=== PATIENT | male | born 1945 | race Caucasian/White ===

== ENCOUNTER 2018-10-10 09:26 | Outpatient (CLI) | payer MEDICARE ==
[~2018-10-10 09:26] MED LIST: B12/1TAB3; CARB1TAB2 PO; CARB1TAB73 PO; CEPH-368 PO; CYAN1TAB29 PO; ENTA200T; HYDR-3240 PO; LORA-445; MELA5TAB19 PO; NITR100C PO; NORT10CA PO; PANT40GR PO; POLY17PO5 PO; QUET50TA5; QUET50TA9 PO; RASA0.5T; [UNRECOGNIZED DRUG - CODE]
== END 2018-10-10 23:59 | disposition home or self-care (01) ==
LOC: RAD 09:26
PROVIDERS: ATTEND Psychiatry & Neurology Neurology
DX: R13.10 Dysphagia, unspecified (principal)
CPT/HCPCS: 74230